=== PATIENT | female | born 1980 | race Caucasian/White ===

== ENCOUNTER 2019-12-07 13:19 | Emergency (ER) | payer OTHER ==
[2019-12-07 13:39] VITALS: BMI 28.0
[2019-12-07] MEDS ORDERED: METOCLOPRAMIDE HCL INJECTION 10 MG/2 ML VIAL IVPB ONE (14:05)
[2019-12-07] MEDS ORDERED: LACTATED RINGERS SOLUTION 1000 ML INFUS.BAG IV ONE (14:06)
[2019-12-07] MEDS ORDERED: METOCLOPRAMIDE HCL INJECTION 10 MG/2 ML VIAL ONE (14:42)
--- NOTE | 2019-12-07 14:42 | PDOC ---
*Physical Exam - Vital Signs Last Vital Signs Temp Pulse Resp BP Pulse Ox 98.1 F 70 18 117/72 98 12/07/19 13:37 12/07/19 13:37 12/07/19 13:37 12/07/19 13:37 12/07/19 13:37 ED Treatment Course - LABORATORY CBC & Chemistry Diagram: 12/07/19 14:30 12/07/19 14:30 - Medications Given in the ED: ED Medications Discontinued Medications Generic Name Dose Route Start Last Admin Trade Name Tanya PRN Reason Stop Dose Admin Lactated Ringer's 1,000 ml 12/07/19 14:06 12/07/19 14:34 Lactated Ringers Solution IV 12/07/19 14:07 1,000 ml ONCE ONE Administration Medical Decision Making - Medical Decision Making 12/07/19 14:39 Patient seen and evaluated with the nurse practitioner. I agree with the overall evaluation, assessment, and management with the following summary of visit: 39y/o F p/w atraumatic headache and nausea, no vomiting. no f/c/neck stiffness/ photophobia. vss, neuro intact 39y/o F with atraumatic headache without red flags on history or PE. ? h/o IIH, but presentation more c/w primary ALONSO. check labs with urine preg trial of ivf and reglan ct head if sxs persist reassess. if above wnl, neuro referral Discharge - Discharge Information Problems reviewed: Yes Clinical Impression/Diagnosis: Dehydration Headache Qualifiers: Headache type: unspecified Headache chronicity pattern: unspecified pattern Intractability: not intractable Qualified Code(s): R51 - Headache Condition: Improved Disposition: HOME - Additional Discharge Information Prescriptions: Butalb/Acetaminophen/Caffeine [Fioricet 50-300-40 mg Capsule] 1 each PO Q6H PRN #20 capsule PRN Reason: headache Metoclopramide HCl [Reglan -] 10 mg PO Q8H PRN #12 tablet PRN Reason: nausea - Follow up/Referral Referrals: ON STAFF,NOT [Primary Care Provider] - - Patient Discharge Instructions Patient Printed Discharge Instructions: DI for Dehydration -- Adult Additional Instructions: Your blood work was normal. Your symptoms was likely from dehydration. Take prescribed medication as needed for headache. Increase fluid intake. Come back to emergency room if worsening headache with vomiting, fevers, dizziness otherwise follow-up with your primary care - Post Discharge Activity
[2019-12-07 14:43] LABS: URINE APPEARANCE CLEAR; URINE BILIRUBIN NEGATIVE (NEGATIVE); URINE COLOR YELLOW; URINE GLUCOSE (UA) NEGATIVE (NEGATIVE); URINE KETONE NEGATIVE (NEGATIVE); URINE LEUK ESTERASE NEGATIVE (NEGATIVE); URINE NITRITE NEGATIVE (NEGATIVE); URINE PROTEIN NEGATIVE (NEGATIVE); URINE UROBILINOGEN 0.2 mg/dL (0.2-1.0)
[2019-12-07 14:44] LABS: EOS % 3.6 % (0-4.5); HEMOGLOBIN 13.4 GM/dL (10.7-15.3); LYMPH % 45.9 % (8-40); MCH 29.5 pg (25.7-33.7); MCHC 33.5 g/dl (32.0-36.0); MEAN CELL VOLUME 88.1 fl (80-96); MONO % 10.9 % (3.8-10.2); NEUT % 38.6 % (42.8-82.8); PLATELET COUNT 242 K/MM3 (134-434); RBC 4.54 M/mm3 (3.60-5.2); RDW 14.6 % (11.6-15.6)
--- NOTE | 2019-12-07 14:56 | PDOC ---
History of Present Illness - General Chief Complaint: Lightheaded Stated Complaint: LIGHTHEADED Time Seen by Provider: 12/07/19 13:56 History Source: Patient Exam Limitations: Clinical Condition - History of Present Illness Initial Comments: 12/07/19 14:22 Patient with past medical history of hypertension on amlodipine and papilledema year ago presented with complaint of 3-day history of right-sided frontal headache, dizziness, nausea and whole body weakness. Denies blurry vision or change in vision. Denies vomiting. Denies chest pain, palpitation, shortness of breath. Denies any other symptoms. Denies recent travel or sick contact. Patient reported for tactile fever 3 days ago but never checked her temperature. Patient did not take anything for symptoms Is this a multiple visit Asthma Patient?: No Timing/Duration: other (3 days) Past History - Past Medical History Allergies/Adverse Reactions: Allergies Allergy/AdvReac Type Severity Reaction Status Date / Time No Known Allergies Allergy Verified 12/07/19 13:39 Home Medications: Ambulatory Orders Amlodipine Besylate [Norvasc -] 5 mg PO DAILY 12/07/19 Butalb/Acetaminophen/Caffeine [Fioricet 50-300-40 mg Capsule] 1 each PO Q6H PRN #20 capsule 12/07/19 Metoclopramide HCl [Reglan -] 10 mg PO Q8H PRN #12 tablet 12/07/19 COPD: No - Psycho Social/Smoking Cessation Hx Smoking History: Never smoked Information on smoking cessation initiated: No Hx Alcohol Use: No Drug/Substance Use Hx: No Review of Systems - Review of Systems Able to Perform ROS?: Yes Is the patient limited [place] proficient: No Constitutional: Yes: Fever (tactile), Malaise, Weakness HEENTM: No: Symptoms Reported, See HPI, Eye Pain, Blurred Vision, Tearing, Recent change in vision, Double Vision, Cataracts, Ear Pain, Ocular Prothesis, Ear Discharge, Nose Pain, Nose Congestion, Tinnitus, Nose Bleeding, Hearing Loss , Throat Pain, Throat Swelling, Mouth Pain, Dental Problems, Difficulty Swallowing, Mouth Swelling, Other Respiratory: No: Symptoms reported, See HPI, Cough, Orthopnea, Shortness of Breath, SOB with Exertion, SOB at Rest, Stridor, Wheezing, Productive cough, Hemoptysis, Other Cardiac (ROS): Yes: Symptoms Reported, See HPI, Lightheadedness. No: Chest Pain , Edema, Irregular Heart Rate, Palpitations, Syncope, Chest Tightness, Other ABD/GI: Yes: Symptoms Reported, See HPI. No: Abdominal Distended, Abd. Pain w/ defecation, Blood Streaked Bowels, Constipated, Diarrhea, Difficulty Swallowing , Nausea, Poor Appetite, Poor Fluid Intake, Rectal Bleeding, Vomiting, Indigestion, Abdominal cramping, Tarry Stools, Other : No: Symptoms Reported, Burning, Discharge, Frequency, Urgency Musculoskeletal: No: Symptoms Reported Integumentary: No: Symptoms Reported, Rash Neurological: Yes: Symptoms reported, See HPI, Headache (right frontal headache) , Weakness, Dizziness. No: Numbness, Paresthesia, Tingling All Other Systems: Reviewed and Negative *Physical Exam - Vital Signs Last Vital Signs Temp Pulse Resp BP Pulse Ox 98.1 F 70 18 117/72 98 12/07/19 13:37 12/07/19 13:37 12/07/19 13:37 12/07/19 13:37 12/07/19 13:37 - Physical Exam 12/07/19 14:56 GENERAL: Well developed, well nourished. Awake and alert. No acute distress. HEENT: Normocephalic, atraumatic. PERRLA, EOMI. No conjunctival pallor. Sclera are non-icteric. Moist mucous membranes. Oropharynx is clear. NECK: Supple. Full ROM. CARDIOVASCULAR: Regular rate and rhythm. No murmurs, rubs, or gallops. Distal pulses are 2+ and symmetric. PULMONARY: No evidence of respiratory distress. Lungs clear to auscultation bilaterally. No wheezing, rales or rhonchi. ABDOMINAL: Soft. Non-tender. Non-distended. No rebound or guarding. No organomegaly. Normoactive bowel sounds. MUSCULOSKELETAL Normal range of motion at all joints. SKIN: Warm and dry. Normal capillary refill. No rashes. No cyanosis NEUROLOGICAL: Alert, awake, appropriate. Cranial nerves II through XII grossly intact. Gait is normal without ataxia. Negative meningeal sign. No radiculopathy on exam PSYCHIATRIC: Cooperative. Good eye contact. Appropriate mood General Appearance: Yes: Nourished, Appropriately Dressed. No: Apparent Distress ED Treatment Course - LABORATORY CBC & Chemistry Diagram: 12/07/19 14:30 12/07/19 14:30 - ADDITIONAL ORDERS Additional order review: Laboratory Results 12/07/19 14:30 Urine Color Yellow Urine Appearance Clear Urine pH 5.0 Ur Specific [place] 1.027 Urine Protein Negative Urine Glucose (UA) Negative Urine Ketones Negative Urine Blood Negative Urine Nitrite Negative Urine Bilirubin Negative Urine Urobilinogen 0.2 Ur Leukocyte Esterase Negative 12/07/19 14:30 RBC 4.54 MCV 88.1 MCHC 33.5 RDW 14.6 MPV 8.0 Neutrophils % 38.6 L Lymphocytes % 45.9 H Monocytes % 10.9 H Eosinophils % 3.6 Basophils % 1.0 - Medications Given in the ED: ED Medications Discontinued Medications Generic Name Dose Route Start Last Admin Trade Name Alenq PRN Reason Stop Dose Admin Lactated Ringer's 1,000 ml 12/07/19 14:06 12/07/19 14:34 Lactated Ringers Solution IV 12/07/19 14:07 1,000 ml ONCE ONE Administration Metoclopramide HCl 10 mg 12/07/19 14:05 12/07/19 14:48 Reglan Injection - IVPB 12/07/19 14:06 10 mg ONCE ONE Administration Medical Decision Making - Medical Decision Making 12/07/19 14:53 Patient with past medical history of hypertension on amlodipine and papilledema year ago presented with complaint of 3-day history of right-sided frontal headache, dizziness, nausea and whole body weakness. Denies blurry vision or change in vision. Denies vomiting. Denies chest pain, palpitation, shortness of breath. Denies any other symptoms. Denies recent travel or sick contact. Patient reported for tactile fever 3 days ago but never checked her temperature. Patient did not take anything for symptoms Clinical exam unremarkable with normal neuro exam. Patient walking with normal gait. Normal cardio and lung exam. No meningeal sign on exam. No radiculopathy. Pupil equal and reflective to light bilateral. Patient symptoms likely viral URI with malaise versus migraine headaches versus less likely intracranial occupying lesion. CBC, CMP, UA, urine culture urine hCG lab ordered. Reglan 10 mg IV ordered for migraine. IV hydration with 1 lactated Ringer's ordered. Will order head CT rule out acute intracranial pathology. Will give NSAIDs if negative head CT for migraine 12/07/19 15:38 Patient reported complete improvement of symptoms after IV hydration and Reglan. CBC and chemistry lab showed no acute abnormality. Patient symptoms likely from dehydration. Patient agrees to hold off on head CT given she feels completely better and will be discharged home for CPR for headache with advised to continue increase fluid intake with strict follow-up Discharge - Discharge Information Problems reviewed: Yes Clinical Impression/Diagnosis: Dehydration Headache Qualifiers: Headache type: unspecified Headache chronicity pattern: unspecified pattern Intractability: not intractable Qualified Code(s): R51 - Headache Condition: Improved Disposition: HOME - Admission No - Additional Discharge Information Prescriptions: Butalb/Acetaminophen/Caffeine [Fioricet 50-300-40 mg Capsule] 1 each PO Q6H PRN #20 capsule PRN Reason: headache Metoclopramide HCl [Reglan -] 10 mg PO Q8H PRN #12 tablet PRN Reason: nausea - Follow up/Referral - Patient Discharge Instructions Patient Printed Discharge Instructions: DI for Dehydration -- Adult Additional Instructions: Your blood work was normal. Your symptoms was likely from dehydration. Take prescribed medication as needed for headache. Increase fluid intake. Come back to emergency room if worsening headache with vomiting, fevers, dizziness otherwise follow-up with your primary care - Post Discharge Activity
[2019-12-07 15:38] LABS: ALBUMIN 3.8 g/dl (3.4-5.0); BILIRUBIN,TOTAL 0.4 mg/dL (0.2-1); BLOOD UREA NITROGEN 11.2 mg/dL (7-18); CALCIUM 9.1 mg/dL (8.5-10.1); CREATININE 0.7 mg/dL (0.55-1.3); POTASSIUM 4.1 mmol/L (3.5-5.1); TOT PROT 6.8 g/dl (6.4-8.2)
[2019-12-07 15:47] VITALS: BP 110/75; PULSE 90; TEMP 98.2
== END 2019-12-07 15:47 | disposition home or self-care (01) ==
LOC: JER 13:19
PROC: 3E033GC Introduction of Other Therapeutic Substance into Peripheral Vein, Percutaneous Approach (ICD-10-PCS; principal; 2019-12-07)
DX: E86.0 Dehydration (principal); R51 Headache
CPT/HCPCS: 36415; 80053; 81003; 84703; 85025; 87086; 96374; 99284-25